=== PATIENT | male | born 1930 | race Caucasian/White ===

== ENCOUNTER 2016-11-29 22:56 | Inpatient (IN) | payer OTHER ==
[2016-11-29] MEDS ORDERED: ACETAMINOPHEN 500 MG TAB PO ONE (23:30)
[2016-11-29] MEDS ORDERED: NS 1,000 ML IV ONE (23:30)
--- NOTE | 2016-11-29 23:39 | EDPHY ---
H & P Smoking Status: Former smoker Time Seen by Provider: 11/29/16 23:37 HPI/ROS: Chief complaint. Fever HPI. 86-year-old male here by EMS with generalized weakness and fever. This began about 24 hours ago. He was unaware however that he had a fever. He only knows generalized weakness and difficulty ambulating around his house. He does have some frequent urination per his . He was seen 3 days ago for an ERCP with biopsy and the indication was choledocholithiasis. He has no abdominal pain however. Denies cough or shortness of breath or chest pain. No abdominal pain vomiting or diarrhea ROS Constitutional. Fever and weakness Eyes. no problems with vision ENT. no sore throat, no nasal drainage Cardiovascular. no chest pain Respiratory. no shortness of breath, no cough Abdominal. no abdominal pain, no nausea/vomiting, no diarrhea . Frequent urination MS. no calf pain/swelling, no neck/back pain, no joint pain Skin. no rash Lymph. no swollen glands Neuro. Difficulty walking secondary to weakness (Pedro Moreland) Past Medical/Surgical History: Past medical history is significant for atrial fibrillation, peripheral neuropathy, pacemaker, hiatal hernia, prostate cancer, cholangitis, cardioversion, cholecystectomy, appendectomy, lumbar surgery (Pedro Moreland) Social History: , nonsmoker, no alcohol (Pedro Moreland) Physical Exam: General Appearance: Alert well-developed male mild distress. Vital signs show temp 38.8degrees with heart rate 101. Blood pressure is stable 142/83. Pulse ox slightly low at 88% Eyes: Pupils equal and round no pallor or injection. ENT, Mouth: Mucous membranes are moist. Respiratory: There are no retractions, lungs are clear to auscultation. Cardiovascular: Regular rate and rhythm. Gastrointestinal: Abdomen is soft and nontender, no masses, bowel sounds normal. Neurological: Awake and alert, sensory and motor exams grossly normal. Skin: Warm and dry, no rashes. Musculoskeletal: Neck is supple nontender. Extremities symmetrical, full range of motion. Psychiatric: Patient is oriented X 3, there is no agitation. (Pedro Moreland) Constitutional: Initial Vital Signs Temperature (C) 38.8 C H 11/29/16 23:27 Heart Rate 101 H 11/29/16 23:27 Respiratory Rate 20 05/07/17 23:27 Blood Pressure 142/83 H 11/29/16 23:27 O2 Sat (%) 88 L 11/29/16 23:27 O2 Delivery Mode Nasal Cannula O2 (L/minute) 2 Allergies/Adverse Reactions: amiodarone Allergy (Verified 11/29/16 23:26) Home Medications: Medication Instructions Recorded Diltiazem [Cardizem] 120 mg PO QID 06/18/14 Dorzolamide 2% [Trusopt 2% (*)] 1 drops LEFTEYE BID 06/18/14 Latanoprost 0.005% [Xalatan 0.005% 1 drops LEFTEYE HS 06/18/14 (*)] Multivitamins [Multivitamin (*)] 1 each PO DAILY 10/03/14 [place]-3 Fatty Acids/Fish Oil [Fish 1 each PO DAILY 10/03/14 Oil 1,000 mg Capsule] Vit C/Dl-E AC/Lut/Copper/Znox 1 each PO BID 10/03/14 [Preservision Softgel] Warfarin Sodium [Coumadin 5MG (*)] 5 mg PO HS 10/03/14 Pantoprazole Sodium [Protonix] 40 mg PO BID #60 tab 10/06/14 levOFLOXACIN [levAQUIN] 750 mg PO DAILY #5 tab 10/06/14 Medical Decision Making Procedures: IV normal saline. The patient received 500 cc per EMS and he is given a L here. Tylenol for fever. Septic workup including lactate and blood cultures (Pedro Moreland) Care assumed by me pending results of blood test. Patient is presenting with fever and generalized weakness. No source of infection. Chest x-ray is negative. Urinalysis is unremarkable. He does have an elevation in his troponin. Of note Dr. Moreland indicated that he had had an ERCP 2 days ago. This is incorrect. The did the ERCP was in 2014. The patient has an otherwise benign workup. No focal source of infection. I discussed with Dr. Abhishek Almendarez , hospitalist. He will admit to his service for further evaluation (Smooth Michaels) Differential Diagnosis: Differential diagnosis of fever includes most likely pneumonia or urinary tract infection. He certainly may have elevated lactate. He is not hypotensive. ( Pedro Moreland) Care Turn Over: Dr. Michaels at midnight (Pedro Moreladn) - Data Points Laboratory Results: Laboratory Results 11/29/16 23:15 11/29/16 23:15 11/30/16 11/29/16 11/29/16 01:34 23:15 23:15 WBC RBC Hgb Hct MCV MCH MCHC RDW Plt Count MPV Neut % (Auto) Lymph % (Auto) [place] % (Auto) Eos % (Auto) Baso % (Auto) Nucleat RBC Rel Count Absolute Neuts (auto) Absolute Lymphs (auto) Absolute Monos (auto) Absolute Eos (auto) Absolute Basos (auto) Absolute Nucleated RBC Immature Gran % Immature Gran # PT 33.8 SEC H SEC (12.0-15.0) INR 3.27 H (0.83-1.16) APTT 40.3 SEC H SEC (23.0-38.0) VBG Lactic Acid Sodium 140 mEq/L mEq/L (134-144) Potassium 4.2 mEq/L mEq/L (3.5-5.2) Chloride 105 mEq/L mEq/L (97-110) Carbon Dioxide 23 mEq/l mEq/l (22-31) Anion Gap 12 mEq/L mEq/L (8-16) BUN 22 mg/dL mg/dL (7-23) Creatinine 0.9 mg/dL mg/dL (0.7-1.3) Estimated GFR > 60 Glucose 159 mg/dL H mg/dL (70-100) Calcium 9.2 mg/dL mg/dL (8.5-10.4) Total Bilirubin 1.9 mg/dL H mg/dL (0.1-1.4) Troponin I 0.042 ng/mL H ng/mL (0-0.034) Lipase 24.0 IU/L IU/L (23-300) Urine Color Urine Appearance Urine pH Ur Specific [place] Urine Protein Urine Ketones Urine Blood Urine Nitrate Urine Bilirubin Urine Urobilinogen Ur Leukocyte Esterase Urine RBC Urine WBC Ur Epithelial Cells Hyaline Casts Urine Mucus Urine Glucose Influenza Typ A,B (DFA) Pending 11/29/16 11/29/16 11/29/16 23:15 00:15 00:05 WBC 17.48 10^3/uL H 10^3/uL (3.80-9.50) RBC 5.26 10^6/uL 10^6/uL (4.40-6.38) Hgb 15.0 g/dL g/dL (13.7-17.5) Hct 44.8 % % (40.0-51.0) MCV 85.2 fL fL (81.5-99.8) MCH 28.5 pg pg (27.9-34.1) MCHC 33.5 g/dL g/dL (32.4-36.7) RDW 13.9 % % (11.5-15.2) Plt Count 207 10^3/uL 10^3/uL (150-400) MPV 11.8 fL H fL (8.7-11.7) Neut % (Auto) 81.3 % H % (39.3-74.2) Lymph % (Auto) 7.7 % L % (15.0-45.0) [place] % (Auto) 10.0 % % (4.5-13.0) Eos % (Auto) 0.1 % L % (0.6-7.6) Baso % (Auto) 0.2 % L % (0.3-1.7) Nucleat RBC Rel Count 0.0 % % (0.0-0.2) Absolute Neuts (auto) 14.23 10^3/uL H 10^3/uL (1.70-6.50) Absolute Lymphs (auto) 1.34 10^3/uL 10^3/uL (1.00-3.00) Absolute Monos (auto) 1.75 10^3/uL H 10^3/uL (0.30-0.80) Absolute Eos (auto) 0.01 10^3/uL L 10^3/uL (0.03-0.40) Absolute Basos (auto) 0.03 10^3/uL 10^3/uL (0.02-0.10) Absolute Nucleated RBC 0.00 10^3/uL 10^3/uL (0-0.01) Immature Gran % 0.7 % % (0.0-1.1) Immature Gran # 0.12 10^3/uL H 10^3/uL (0.00-0.10) PT INR APTT VBG Lactic Acid 1.3 mmol/L mmol/L (0.7-2.1) Sodium Potassium Chloride Carbon Dioxide Anion Gap BUN Creatinine Estimated GFR Glucose Calcium Total Bilirubin Troponin I Lipase Urine Color GUI Urine Appearance HAZY Urine pH 5.0 (5.0-7.5) Ur Specific [place] 1.029 (1.002-1.030) Urine Protein 2+ H (NEGATIVE) Urine Ketones TRACE H (NEGATIVE) Urine Blood NEGATIVE (NEGATIVE) Urine Nitrate NEGATIVE (NEGATIVE) Urine Bilirubin NEGATIVE (NEGATIVE) Urine Urobilinogen NEGATIVE EU EU (0.2-1.0) Ur Leukocyte Esterase NEGATIVE (NEGATIVE) Urine RBC 10-15 /hpf H /hpf (0-3) Urine WBC 1-3 /hpf /hpf (0-3) Ur Epithelial Cells TRACE /lpf /lpf (NONE-1+) Hyaline Casts 1-5 /lpf /lpf (0-1) Urine Mucus 2+ /lpf H /lpf (NONE-1+) Urine Glucose 1+ H (NEGATIVE) Influenza Typ A,B (DFA) Medications Given: Discontinued Medications Acetaminophen (Tylenol) 1,000 mg PO EDNOW ONE Stop: 11/29/16 23:31 Last Admin: 11/29/16 23:49 Dose: 1,000 mg Sodium Chloride (Ns) 1,000 mls @ 0 mls/hr IV ONCE ONE PRN Reason: Wide Open Stop: 11/29/16 23:31 Last Admin: 11/29/16 23:30 Dose: 1,000 mls Departure - Departure Disposition: [facility] Inpatient Acute Clinical Impression: Fever, Elevated troponin Condition: Fair Referrals: Patient,NotPresent [Unknown] - As per Instructions
[2016-11-29 23:57] LABS: % IMMATURE GRANULYOCYTES 0.7 % (0.0-1.1); ABSOLUTE IMMATURE GRANULOCYTES 0.12 10^3/uL (0.00-0.10); ADD DIFF? NO; ADD MORPH? NO; ADD SCAN? NO; ATYPICAL LYMPHOCYTE FLAG 0 (0-99); FRAGMENT RBC FLAG 0 (0-99); HEMATOCRIT 44.8 % (40.0-51.0); LEFT SHIFT FLG 20 (0-99); LIPEMIA HEMOLYSIS FLAG 80 (0-99); MEAN CELL HEMOGLOBIN 28.5 pg (27.9-34.1); MEAN CELL HEMOGLOBIN CONCENTR. 33.5 g/dL (32.4-36.7); MEAN CELL VOLUME 85.2 fL (81.5-99.8); MEAN PLATELET VOLUME 11.8 fL (8.7-11.7); PLATELET CLUMPS FLAG 30 (0-99); PLATELET COUNT 207 10^3/uL (150-400); RED BLOOD CELL COUNT 5.26 10^6/uL (4.40-6.38); RED CELL DISTRIBUTION WIDTH 13.9 % (11.5-15.2)
[2016-11-30 00:07] LABS: ANION GAP 12 mEq/L (8-16); BILIRUBIN,TOTAL 1.9 mg/dL (0.1-1.4); CALCIUM 9.2 mg/dL (8.5-10.4); CARBON DIOXIDE 23 mEq/l (22-31); CHLORIDE 105 mEq/L (97-110); CREATININE 0.9 mg/dL (0.7-1.3); GLOMERULAR FILTRATION RATE > 60; GLUCOSE 159 mg/dL (70-100); INR 3.27 (0.83-1.16); POTASSIUM 4.2 mEq/L (3.5-5.2); PROTIME(PATIENT) 33.8 SEC (12.0-15.0); SODIUM 140 mEq/L (134-144)
[2016-11-30 00:08] LABS: APTT 40.3 SEC (23.0-38.0)
[2016-11-30 00:18] LABS: TROPONIN I 0.042 ng/mL (0-0.034)
[2016-11-30 00:31] LABS: COLOR AMBER; LEUKOCYTE ESTERASE,URINE NEGATIVE (NEGATIVE); NITRITE,URINE NEGATIVE (NEGATIVE)
[2016-11-30 00:40] LABS: MUCUS 2+ /lpf (NONE-1+)
--- NOTE | 2016-11-30 01:02 | CPEKG ---
Heart Rate: 84 RR Interval: 714 QRSD Interval: 102 QT Interval: 332 QTC Interval: 393 QRS [place]: -63 EKG Severity - ABNORMAL ECG - EKG Impression: ATRIAL FIBRILLATION, V-RATE 60-104 EKG Impression: INFERIOR INFARCT, AGE INDETERMINATE EKG Impression: PROBABLE ANTEROSEPTAL INFARCT, AGE INDETERM Electronically Signed By: Smooth Michaels 30-Nov-2016 07:14:39
[2016-11-30] MEDS ORDERED: ONDANSETRON 4 MG/2 ML VIAL IVP PRN (04:27)
[2016-11-30] MEDS ORDERED: ONDANSETRON DISINTEGRATING 4 MG TAB PO PRN (04:27)
--- NOTE | 2016-11-30 04:36 | PDGENHP ---
History and Physical - Chief Complaint acute weakness - History of Present Illness PCP: Dr. Winchester Primary wire welder: Dr. Benavides Primary belt polisher: Dr. Rosado HPI: 86-year-old male presenting with acute weakness characterized as generalized with associated fatigue, urinary frequency, anorexia, onset of symptoms 3 days ago and duration persistently worsening thereafter. Patient reports that he had previously been feeling well, albeit with a chronic slowly progressive weakness and neuropathy, when he experienced acutely worsening weakness 3 days prior to arrival. His symptoms are exacerbated with ambulation and consequently he has been dragging himself physically around most of his house. Does report some associated "Rug burn" on his face as well as his knees. He denies overt diarrhea but does report that he has been having hard stool followed by loose stool followed by only intermittent bowel movements every 48 hours. He denies overt right upper quadrant pain but does report that the last time he experienced biliary stones he did not experience right upper quadrant pain either. History Information - Allergies/Home Medication List Allergies/Adverse Reactions: amiodarone Allergy (Verified 11/29/16 23:26) Home Medications: Diltiazem [Cardizem] 120 mg PO QID 06/18/14 [Last Taken 09/27/14] Dorzolamide 2% [Trusopt 2% (*)] 1 drops LEFTEYE BID 06/18/14 [Last Taken ] Latanoprost 0.005% [Xalatan 0.005% (*)] 1 drops LEFTEYE HS 06/18/14 [Last Taken 10/02/14] Multivitamins [Multivitamin (*)] 1 each PO DAILY 10/03/14 [Last Taken Unknown] [place]-3 Fatty Acids/Fish Oil [Fish Oil 1,000 mg Capsule] 1 each PO DAILY [Last Taken Unknown] Vit C/Dl-E AC/Lut/Copper/Znox [Preservision Softgel] 1 each PO BID 10/03/14 [ Last Taken Unknown] Warfarin Sodium [Coumadin 5MG (*)] 5 mg PO HS 10/03/14 [Last Taken 10/02/14] I have personally reviewed and updated: family history, medical history, social history, surgical history - Past Medical History atrial fibrillation ( Permanent, on systemic anticoagulation with sick sinus syndrome) Additional medical history: Ascending cholangitis with choledocholithiasis, requiring ERCP. Peptic ulcer disease. Macular degeneration. Peripheral neuropathy with chronic weakness - Surgical History Additional surgical history: November [address] Rosado demonstrating large hiatal hernia without ulcers on follow-up scoping, removed biliary stents at that time. Back surgery. Prostate surgery. Appendectomy. Cholecystectomy. Permanent pacemaker - Family History Additional family history: no recent sick family contacts - Social History Smoking Status: Former smoker Alcohol Use: None Drug Use: None Additional social history: lives with , independent, has a son who lives locally Review of Systems ROS: 10pt was reviewed & negative except for what was stated in HPI & below Constitutional: Reports: weakness Gastrointestinal: Reports: other ( anorexia) Physical Exam Temp Pulse Resp BP Pulse Ox 37.2 C 74 18 107/63 96 11/30/16 03:14 11/30/16 03:14 11/30/16 03:14 11/30/16 03:14 11/30/16 03:14 O2 (L/minute) 2 Constitutional: no apparent distress, appears nourished, not in pain Eyes: PERRL, anicteric sclera, EOMI Ears, Nose, Mouth, Throat: moist mucous membranes, hearing normal, ears appear normal, no oral mucosal ulcers Cardiovascular: irregularly irregular, tachycardia, No systolic murmur, No edema Respiratory: no respiratory distress, no rales or rhonchi, clear to auscultation Gastrointestinal: normoactive bowel sounds, soft, non-tender abdomen, no palpable masses, No guarding, No distension Skin: other ( less than 5 cm erythematous skin tear medial aspect right knee, abrasion on bridge of nose and forehead) Neurologic: AAOx3, CN II-XII Intact, No sensation intact bilaterally ( paresthesias bilateral lower extremities, worse distally), No weakness ( motor strength 5/5 bilateral upper and lower extremities) Psychiatric: interacting appropriately, not anxious, not encephalopathic, thought process linear Lymph, Heme, Immunologic: no cervical LAD, other ( palpable, nontender, 1 cm lymph nodes bilateral submandibular) Lab Data & Imaging Review 11/29/16 23:15 11/29/16 23:15 WBC 17.48 10^3/uL (3.80-9.50) H 11/29/16 23:15 RBC 5.26 10^6/uL (4.40-6.38) 11/29/16 23:15 Hgb 15.0 g/dL (13.7-17.5) 11/29/16 23:15 Hct 44.8 % (40.0-51.0) 11/29/16 23:15 MCV 85.2 fL (81.5-99.8) 11/29/16 23:15 MCH 28.5 pg (27.9-34.1) 11/29/16 23:15 MCHC 33.5 g/dL (32.4-36.7) 11/29/16 23:15 RDW 13.9 % (11.5-15.2) 11/29/16 23:15 Plt Count 207 10^3/uL (150-400) 11/29/16 23:15 MPV 11.8 fL (8.7-11.7) H 11/29/16 23:15 Neut % (Auto) 81.3 % (39.3-74.2) H 11/29/16 23:15 Lymph % (Auto) 7.7 % (15.0-45.0) L 11/29/16 23:15 [place] % (Auto) 10.0 % (4.5-13.0) 11/29/16 23:15 Eos % (Auto) 0.1 % (0.6-7.6) L 11/29/16 23:15 Baso % (Auto) 0.2 % (0.3-1.7) L 11/29/16 23:15 Nucleat RBC Rel Count 0.0 % (0.0-0.2) 11/29/16 23:15 Absolute Neuts (auto) 14.23 10^3/uL (1.70-6.50) H 11/29/16 23:15 Absolute Lymphs (auto) 1.34 10^3/uL (1.00-3.00) 11/29/16 23:15 Absolute Monos (auto) 1.75 10^3/uL (0.30-0.80) H 11/29/16 23:15 Absolute Eos (auto) 0.01 10^3/uL (0.03-0.40) L 11/29/16 23:15 Absolute Basos (auto) 0.03 10^3/uL (0.02-0.10) 11/29/16 23:15 Absolute Nucleated RBC 0.00 10^3/uL (0-0.01) 11/29/16 23:15 Immature Gran % 0.7 % (0.0-1.1) 11/29/16 23:15 Immature Gran # 0.12 10^3/uL (0.00-0.10) H 11/29/16 23:15 PT 33.8 SEC (12.0-15.0) H 11/29/16 23:15 INR 3.27 (0.83-1.16) H 11/29/16 23:15 APTT 40.3 SEC (23.0-38.0) H 11/29/16 23:15 VBG Lactic Acid 1.3 mmol/L (0.7-2.1) 11/29/16 00:15 Sodium 140 mEq/L (134-144) 11/29/16 23:15 Potassium 4.2 mEq/L (3.5-5.2) 11/29/16 23:15 Chloride 105 mEq/L (97-110) 11/29/16 23:15 Carbon Dioxide 23 mEq/l (22-31) 11/29/16 23:15 Anion Gap 12 mEq/L (8-16) 11/29/16 23:15 BUN 22 mg/dL (7-23) 11/29/16 23:15 Creatinine 0.9 mg/dL (0.7-1.3) 11/29/16 23:15 Estimated GFR > 60 11/29/16 23:15 Glucose 159 mg/dL (70-100) H 11/29/16 23:15 Calcium 9.2 mg/dL (8.5-10.4) 11/29/16 23:15 Total Bilirubin 1.9 mg/dL (0.1-1.4) H 11/29/16 23:15 Troponin I 0.042 ng/mL (0-0.034) H 11/29/16 23:15 Lipase 24.0 IU/L (23-300) 11/29/16 23:15 Urine Color GUI 11/29/16 00:05 Urine Appearance HAZY 11/29/16 00:05 Urine pH 5.0 (5.0-7.5) 11/29/16 00:05 Ur Specific [place] 1.029 (1.002-1.030) 11/29/16 00:05 Urine Protein 2+ (NEGATIVE) H 11/29/16 00:05 Urine Ketones TRACE (NEGATIVE) H 11/29/16 00:05 Urine Blood NEGATIVE (NEGATIVE) 11/29/16 00:05 Urine Nitrate NEGATIVE (NEGATIVE) 11/29/16 00:05 Urine Bilirubin NEGATIVE (NEGATIVE) 11/29/16 00:05 Urine Urobilinogen NEGATIVE EU (0.2-1.0) 11/29/16 00:05 Ur Leukocyte Esterase NEGATIVE (NEGATIVE) 11/29/16 00:05 Urine RBC 10-15 /hpf (0-3) H 11/29/16 00:05 Urine WBC 1-3 /hpf (0-3) 11/29/16 00:05 Ur Epithelial Cells TRACE /lpf (NONE-1+) 11/29/16 00:05 Hyaline Casts 1-5 /lpf (0-1) 11/29/16 00:05 Urine Mucus 2+ /lpf (NONE-1+) H 11/29/16 00:05 Urine Glucose 1+ (NEGATIVE) H 11/29/16 00:05 Influenza Typ A,B (DFA) NEGATIVE FOR FLU (NEGATIVE) 11/30/16 01:34 Visualized and Interpreted Chest x-ray results: Yes Chest X-Ray results: other ( possible retrocardiac airspace disease) Visualized and Interpreted EKG results: Yes EKG Interpretation: Positive for: other ( atrial fibrillation with Q-waves inferiorly in lead V3, T-wave inversions in lead V3 through V6) Assessment & Plan Assessment: 86-year-old male presenting with acute systemic inflammatory response syndrome and suspected underlying infection resulting in sepsis Plan: 1. Suspected sepsis. Acute, new problem, further w/u. Evidenced by ICDS-2/ sepsis -2 criteria including tachycardia, fever, leukocytosis, suspected source of infection is either pneumonia versus respiratory virus versus ascending cholangitis, resulting in autonomic dysregulation in the setting of suspected infection - continue IV fluids - status post empiric IV levofloxacin for possible retrocardiac infiltrate - blood culture sent, send respiratory viral panel - get right upper quadrant ultrasound to evaluate for choledocholithiasis given his history of ascending cholangitis - get full liver panel given hyperbilirubinemia , outside records reviewed including 11/26/[address] Rosado demonstrating no active ulcers, large hiatal hernia, removal biliary stents at that time - if above unrevealing, consider more advanced chest imaging to determine whether he has an overt pneumonia - follow CBC and fever curve - as needed Tylenol 2. Abnormal troponin. Unclear whether this is secondary to sepsis induced myocardial ischemia versus rate-related ischemia from AFib RVR - repeat troponin level - continue monitor on telemetry - hold on cardiac risk stratification unless patient has no evidence of infection then pursue nuclear medicine adenosine stress test 3. Permanent atrial fibrillation. With sick sinus syndrome, continue systemic anticoagulation and daily INR check 4. Peripheral neuropathy. Has an element of chronic underlying weakness, engage with PT OT and case management to determine safest level of care following resolution of his acute episode Diet. Regular Prophylaxis. High risk patient, on systemic anticoagulation Code. Do not resuscitate Disposition. Anticipated discharge is uncertain this time, anticipated length stay is greater than 48 hours warranting inpatient admission status for acute suspected sepsis in the setting of high risk comorbid abnormal troponin, permanent atrial fibrillation, chronic peripheral neuropathy. I have discussed patient's presentation with Dr. Sammy Michaels, we agreed the patient is appropriate for the PCU at this time.
[2016-11-30] MEDS: NS 1,000 ML IV SCH ×2 (06:14→11:48)
[2016-11-30 07:31] LABS: % IMMATURE GRANULYOCYTES 0.8 % (0.0-1.1); ABSOLUTE IMMATURE GRANULOCYTES 0.11 10^3/uL (0.00-0.10); ADD DIFF? NO; ADD MORPH? NO; ADD SCAN? NO; ATYPICAL LYMPHOCYTE FLAG 0 (0-99); FRAGMENT RBC FLAG 0 (0-99); HEMATOCRIT 40.1 % (40.0-51.0); HEMOGLOBIN 13.4 g/dL (13.7-17.5); LEFT SHIFT FLG 20 (0-99); LIPEMIA HEMOLYSIS FLAG 80 (0-99); MEAN CELL HEMOGLOBIN CONCENTR. 33.4 g/dL (32.4-36.7); MEAN CELL VOLUME 86.8 fL (81.5-99.8); MEAN PLATELET VOLUME 11.3 fL (8.7-11.7); PLATELET CLUMPS FLAG 10 (0-99); PLATELET COUNT 173 10^3/uL (150-400); RED BLOOD CELL COUNT 4.62 10^6/uL (4.40-6.38)
[2016-11-30 07:40] LABS: ALANINE AMINOTRANSFERASE 29 IU/L (21-72); ALBUMIN 3.1 g/dL (3.5-5.0); ALKALINE PHOSPHATASE 53 IU/L (38-126); ANION GAP 5 mEq/L (8-16); ASPARTATE AMINOTRANSFERASE 18 IU/L (17-59); BILIRUBIN,TOTAL 1.8 mg/dL (0.1-1.4); CALCIUM 8.6 mg/dL (8.5-10.4); CARBON DIOXIDE 26 mEq/l (22-31); CHLORIDE 107 mEq/L (97-110); GLOMERULAR FILTRATION RATE > 60; GLUCOSE 128 mg/dL (70-100); MAGNESIUM 1.7 mg/dL (1.6-2.3); POTASSIUM 4.2 mEq/L (3.5-5.2); SODIUM 138 mEq/L (134-144); TOTAL PROTEIN 6.4 g/dL (6.3-8.2)
[2016-11-30 07:41] LABS: INR 3.46 (0.83-1.16); PROTIME(PATIENT) 35.4 SEC (12.0-15.0)
[2016-11-30 08:40] LABS: TROPONIN I 0.058 ng/mL (0-0.034)
[2016-11-30] MEDS: PANTOPRAZOLE SODIUM 40 MG TAB PO SCH ×2 (09:47→20:41)
[2016-11-30] MEDS: DORZOLAMIDE 2% OPTH DROPS LEFTEYE SCH ×2 (09:50→19:51)
--- NOTE | 2016-11-30 11:07 | HOSPPROG ---
Hospitalist Progress Note Assessment/Plan: Pt admitted this am. Chart reviewed, pt seen and examined. Sepsis secondary to PNA - LLL / retrocardiac infiltrate in setting of left chest pain and productive cough with fever and hypoxia. Flu neg. Nl lactate and no hypotension. -Levaquin -send sputum cx -BCx's pending -send pneumococcal / legionella urinary Ag A fib - rate controlled on Dilt, INR supratherapeutic -cont dilt at low dose for rate control as BP tolerates, up-titrate as sepsis resolves -hold coumadin today, pharmacy to dose going forward Elevated trop - suspect demand ischemia in setting of sepsis. No CP or signs of ACS. -trend to peak Peripheral neuropathy - severe. His ambulation is very unstable. -PT/OT -he may require SNF but not sure he'll agree to this Full code Dispo - cont inpt Subjective: Pt feels a little better. No more fevers. He is up with PT, very unsteady on his feet. Objective: Vital Signs Temp Pulse Resp BP Pulse Ox 36.9 C 75 21 H 113/65 96 11/30/16 08:15 11/30/16 08:15 11/30/16 08:15 11/30/16 08:15 11/30/16 08:15 Microbiology 11/30/16 08:36 Respiratory Panel (PCR) - Final Nasal, Sinus - [place] Viral Transport No Organism Detected Laboratory Results 11/30/16 07:20 11/30/16 07:20 11/29/16 11/30/16 12/01/16 05:59 05:59 05:59 Intake Total 1600 Output Total 0 Balance 1600 PT 35.4 SEC (12.0-15.0) H 11/30/16 07:20 INR 3.46 (0.83-1.16) H 11/30/16 07:20 - Physical Exam Constitutional: no apparent distress Eyes: PERRL Ears, Nose, Mouth, Throat: moist mucous membranes Cardiovascular: irregularly irregular Respiratory: no respiratory distress, clear to auscultation Gastrointestinal: normoactive bowel sounds, soft, non-tender abdomen Skin: warm Neurologic: AAOx3 Psychiatric: interacting appropriately ICD10 Worksheet Patient Problems: Problems Problem Status Onset Atrial fibrillation Acute Pacemaker 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
[2016-11-30] MEDS ORDERED: DILTIAZEM 30 MG TAB PO SCH (12:00)
[2016-11-30] MEDS: DILTIAZEM 60 MG TAB PO SCH ×2 (18:58→23:14)
[2016-11-30] MEDS: ACETAMINOPHEN 325 MG TAB PO PRN (19:11)
--- NOTE | 2016-11-30 19:32 | CPEKG ---
Heart Rate: 90 RR Interval: 667 QRSD Interval: 112 QT Interval: 352 QTC Interval: 431 QRS [place]: -39 T Wave [place]: -17 EKG Severity - ABNORMAL ECG - EKG Impression: ATRIAL FIBRILLATION, V-RATE 83-105 EKG Impression: INCOMPLETE RIGHT BUNDLE BRANCH BLOCK EKG Impression: ANTERIOR INFARCT, AGE INDETERMINATE Electronically Signed By: Villa Garrison 01-Dec-2016 14:49:53
[2016-11-30] MEDS: LATANOPROST 0.005% 2.5 ML OPHT DROPS LEFTEYE SCH (20:41)
[2016-12-01 04:39] LABS: % IMMATURE GRANULYOCYTES 0.8 % (0.0-1.1); ABSOLUTE IMMATURE GRANULOCYTES 0.11 10^3/uL (0.00-0.10); ADD DIFF? NO; ADD MORPH? NO; ADD SCAN? NO; ATYPICAL LYMPHOCYTE FLAG 0 (0-99); FRAGMENT RBC FLAG 0 (0-99); HEMATOCRIT 38.6 % (40.0-51.0); LEFT SHIFT FLG 20 (0-99); LIPEMIA HEMOLYSIS FLAG 80 (0-99); MEAN CELL HEMOGLOBIN 28.9 pg (27.9-34.1); MEAN CELL HEMOGLOBIN CONCENTR. 33.7 g/dL (32.4-36.7); MEAN CELL VOLUME 85.8 fL (81.5-99.8); MEAN PLATELET VOLUME 12.1 fL (8.7-11.7); PLATELET CLUMPS FLAG 0 (0-99); PLATELET COUNT 171 10^3/uL (150-400)
[2016-12-01 04:46] LABS: INR 2.98 (0.83-1.16); PROTIME(PATIENT) 31.4 SEC (12.0-15.0)
[2016-12-01 05:15] LABS: ALANINE AMINOTRANSFERASE 27 IU/L (21-72); ALBUMIN 2.6 g/dL (3.5-5.0); ALKALINE PHOSPHATASE 57 IU/L (38-126); ANION GAP 7 mEq/L (8-16); ASPARTATE AMINOTRANSFERASE 19 IU/L (17-59); BILIRUBIN,TOTAL 1.8 mg/dL (0.1-1.4); CALCIUM 8.1 mg/dL (8.5-10.4); CARBON DIOXIDE 22 mEq/l (22-31); CHLORIDE 106 mEq/L (97-110); CREATININE 0.9 mg/dL (0.7-1.3); GLOMERULAR FILTRATION RATE > 60; GLUCOSE 94 mg/dL (70-100); SODIUM 135 mEq/L (134-144); TOTAL PROTEIN 5.4 g/dL (6.3-8.2)
[2016-12-01] MEDS: DILTIAZEM 60 MG TAB PO SCH ×3 (06:25→18:25)
[2016-12-01] MEDS: PANTOPRAZOLE SODIUM 40 MG TAB PO SCH ×2 (09:20→21:16)
[2016-12-01] MEDS: DORZOLAMIDE 2% OPTH DROPS LEFTEYE SCH ×2 (09:21→21:19)
[2016-12-01] MEDS ORDERED: DILTIAZEM 60 MG TAB PO SCH (10:05)
--- NOTE | 2016-12-01 10:08 | HOSPPROG ---
Hospitalist Progress Note Assessment/Plan: Sepsis secondary to PNA - LLL / retrocardiac infiltrate in setting of left chest pain and productive cough with fever and hypoxia. Flu neg. Nl lactate and no hypotension. Afebrile x24 hrs on atbx. -Change to oral Levaquin -BCx's ngtd, sputum Cx pending -pneumococcal / legionella urinary Ag pending A fib - rate controlled on Dilt, INR supratherapeutic -up-titrating diltiazem towards home dose of 120 QID as sepsis is resolving, BP's stable -pharmacy dosing coumain Elevated trop - suspect demand ischemia in setting of sepsis, peaked at 0.058, trending down. No CP or signs of ACS. Peripheral neuropathy - severe. His ambulation is very unstable. -PT/OT -he may require SNF but not sure he'll agree to this Full code Dispo - cont inpt, PT/OT, dispo planning Subjective: Pt feels a bit better. Still quite unsteady on his feet. Having some pleurisy pain. No fevers overnight. Objective: Vital Signs Temp Pulse Resp BP Pulse Ox 36.9 C 95 20 134/81 H 93 12/01/16 07:08 12/01/16 07:08 12/01/16 07:08 12/01/16 07:08 12/01/16 07:08 Microbiology 11/30/16 08:36 Respiratory Panel (PCR) - Final Nasal, Sinus - [place] Viral Transport No Organism Detected Laboratory Results 12/01/16 03:21 12/01/16 03:21 11/30/16 12/01/16 12/02/16 05:59 05:59 05:59 Intake Total 100 2770 Output Total 0 200 Balance 100 2570 PT 31.4 SEC (12.0-15.0) H 12/01/16 03:21 INR 2.98 (0.83-1.16) H 12/01/16 03:21 - Physical Exam Constitutional: no apparent distress Eyes: PERRL Ears, Nose, Mouth, Throat: moist mucous membranes Cardiovascular: regular rate and rhythym Respiratory: no respiratory distress, clear to auscultation Gastrointestinal: normoactive bowel sounds, soft, non-tender abdomen Skin: warm Neurologic: AAOx3 Psychiatric: interacting appropriately ICD10 Worksheet Patient Problems: Problems Problem Status Onset Elevated troponin Acute Fever Acute Atrial fibrillation Acute Fever Acute 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
[2016-12-01] MEDS: traMADol 50 MG TAB PO PRN ×2 (14:30→21:16)
[2016-12-01] MEDS: LIDOCAINE 5% 1 EA PATCH TD SCH (14:31)
[2016-12-01] MEDS ORDERED: WARFARIN SODIUM 1 MG TAB PO ONE (16:00)
[2016-12-01] MEDS: ACETAMINOPHEN 325 MG TAB PO PRN (16:38)
[2016-12-01] MEDS: PATCH REMOVAL 1 EA PATCH TD SCH (21:18)
[2016-12-01] MEDS: LATANOPROST 0.005% 2.5 ML OPHT DROPS LEFTEYE SCH (21:19)
[2016-12-02] MEDS: DILTIAZEM 60 MG TAB PO SCH ×5 (00:19→23:46)
[2016-12-02 04:44] LABS: ABSOLUTE IMMATURE GRANULOCYTES 0.12 10^3/uL (0.00-0.10); ADD DIFF? NO; ADD MORPH? NO; ADD SCAN? NO; ATYPICAL LYMPHOCYTE FLAG 0 (0-99); FRAGMENT RBC FLAG 0 (0-99); HEMATOCRIT 38.2 % (40.0-51.0); HEMOGLOBIN 12.8 g/dL (13.7-17.5); LEFT SHIFT FLG 40 (0-99); LIPEMIA HEMOLYSIS FLAG 80 (0-99); MEAN CELL HEMOGLOBIN 28.6 pg (27.9-34.1); MEAN CELL HEMOGLOBIN CONCENTR. 33.5 g/dL (32.4-36.7); MEAN CELL VOLUME 85.3 fL (81.5-99.8); MEAN PLATELET VOLUME 11.6 fL (8.7-11.7); PLATELET CLUMPS FLAG 0 (0-99); PLATELET COUNT 184 10^3/uL (150-400); RED BLOOD CELL COUNT 4.48 10^6/uL (4.40-6.38); RED CELL DISTRIBUTION WIDTH 13.7 % (11.5-15.2)
[2016-12-02 04:56] LABS: INR 2.49 (0.83-1.16); PROTIME(PATIENT) 27.2 SEC (12.0-15.0)
[2016-12-02 05:04] LABS: ALANINE AMINOTRANSFERASE 27 IU/L (21-72); ALBUMIN 2.6 g/dL (3.5-5.0); ALKALINE PHOSPHATASE 55 IU/L (38-126); ANION GAP 10 mEq/L (8-16); ASPARTATE AMINOTRANSFERASE 21 IU/L (17-59); BILIRUBIN,TOTAL 1.4 mg/dL (0.1-1.4); CARBON DIOXIDE 19 mEq/l (22-31); CHLORIDE 106 mEq/L (97-110); CREATININE 0.9 mg/dL (0.7-1.3); GLOMERULAR FILTRATION RATE > 60; GLUCOSE 104 mg/dL (70-100); POTASSIUM 3.9 mEq/L (3.5-5.2); SODIUM 135 mEq/L (134-144); TOTAL PROTEIN 5.2 g/dL (6.3-8.2)
[2016-12-02] MEDS: DORZOLAMIDE 2% OPTH DROPS LEFTEYE SCH ×2 (09:11→21:04)
[2016-12-02] MEDS: PANTOPRAZOLE SODIUM 40 MG TAB PO SCH ×2 (09:11→21:04)
[2016-12-02] MEDS: LIDOCAINE 5% 1 EA PATCH TD SCH (09:37)
[2016-12-02] MEDS ORDERED: BACITRACIN OINTMENT 1 PACKET TP ONE (12:15)
--- NOTE | 2016-12-02 14:52 | HOSPPROG ---
Hospitalist Progress Note Assessment/Plan: Sepsis secondary to PNA - LLL / retrocardiac infiltrate in setting of left chest pain and productive cough with fever and hypoxia. Flu neg. Legionella, strep Ag's neg. Nl lactate and no hypotension. Afebrile x48 hrs on atbx. -Cont Levaquin, day 3/, change to po -BCx's ngtd, sputum Cx pending Acute hypoxemic respiratory failure secondary to above - 2 LPM, may require home o2 A fib - rate controlled on Dilt, INR supratherapeutic on arrival, now therapeutic. -up-titrating diltiazem towards home dose of 120 QID as sepsis resolves, BP' s stable -pharmacy dosing coumain Elevated trop - suspect demand ischemia in setting of sepsis, peaked at 0.058, trending down. No CP or signs of ACS. Peripheral neuropathy - severe. His ambulation is very unstable and he remains very weak. -cont PT/OT -SNF is recommended, but pt refusing both SNF and home care services Full code Dispo - cont inpt, PT/OT, poss d/c 12/03 Subjective: Pt feels better. Chest discomfort and cough improved. No fevers. He is still very weak. Objective: Vital Signs Temp Pulse Resp BP Pulse Ox 36.8 C 83 23 H 127/68 H 97 12/02/16 11:40 12/02/16 11:40 12/02/16 11:40 12/02/16 11:40 12/02/16 11:40 Microbiology 11/30/16 09:10 - Final Sputum, Expectorated Laboratory Results 12/02/16 03:47 12/02/16 03:47 12/01/16 12/02/16 12/03/16 05:59 05:59 05:59 Intake Total 2770 830 Output Total 200 1250 Balance 2570 -420 PT 27.2 SEC (12.0-15.0) H 12/02/16 03:47 INR 2.49 (0.83-1.16) H 12/02/16 03:47 - Physical Exam Constitutional: no apparent distress Eyes: PERRL Ears, Nose, Mouth, Throat: moist mucous membranes Cardiovascular: regular rate and rhythym Respiratory: no respiratory distress, inspiratory crackles Gastrointestinal: normoactive bowel sounds, soft, non-tender abdomen Skin: warm Musculoskeletal: abnormal gait, generalized weakness Neurologic: AAOx3 Psychiatric: interacting appropriately ICD10 Worksheet Patient Problems: Problems Problem Status Onset Elevated troponin Acute Fever Acute Atrial fibrillation Acute Fever Acute 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
[2016-12-02] MEDS ORDERED: WARFARIN SODIUM 5 MG TAB PO ONE (16:00)
[2016-12-02] MEDS ORDERED: WARFARIN SODIUM 3 MG TAB PO ONE (16:00)
[2016-12-02] MEDS: LATANOPROST 0.005% 2.5 ML OPHT DROPS LEFTEYE SCH (21:04)
[2016-12-02] MEDS: PATCH REMOVAL 1 EA PATCH TD SCH (21:14)
[2016-12-03 05:15] LABS: % IMMATURE GRANULYOCYTES 1.3 % (0.0-1.1); ABSOLUTE IMMATURE GRANULOCYTES 0.16 10^3/uL (0.00-0.10); ADD DIFF? NO; ADD MORPH? NO; ADD SCAN? NO; ATYPICAL LYMPHOCYTE FLAG 0 (0-99); FRAGMENT RBC FLAG 0 (0-99); HEMATOCRIT 38.5 % (40.0-51.0); HEMOGLOBIN 13.1 g/dL (13.7-17.5); LEFT SHIFT FLG 30 (0-99); LIPEMIA HEMOLYSIS FLAG 90 (0-99); MEAN CELL HEMOGLOBIN 28.7 pg (27.9-34.1); MEAN CELL VOLUME 84.2 fL (81.5-99.8); MEAN PLATELET VOLUME 11.5 fL (8.7-11.7); PLATELET CLUMPS FLAG 20 (0-99); PLATELET COUNT 225 10^3/uL (150-400); RED BLOOD CELL COUNT 4.57 10^6/uL (4.40-6.38); RED CELL DISTRIBUTION WIDTH 13.9 % (11.5-15.2)
[2016-12-03 05:30] LABS: ANION GAP 10 mEq/L (8-16); CALCIUM 8.1 mg/dL (8.5-10.4); CARBON DIOXIDE 20 mEq/l (22-31); CHLORIDE 105 mEq/L (97-110); CREATININE 0.9 mg/dL (0.7-1.3); GLOMERULAR FILTRATION RATE > 60; GLUCOSE 104 mg/dL (70-100); POTASSIUM 3.9 mEq/L (3.5-5.2); SODIUM 135 mEq/L (134-144)
[2016-12-03] MEDS: DILTIAZEM 60 MG TAB PO SCH ×3 (06:04→17:45)
[2016-12-03 09:30] LABS: INR 2.56 (0.83-1.16); PROTIME(PATIENT) 27.8 SEC (12.0-15.0)
[2016-12-03] MEDS: DORZOLAMIDE 2% OPTH DROPS LEFTEYE SCH ×2 (09:48→17:47)
[2016-12-03] MEDS: PANTOPRAZOLE SODIUM 40 MG TAB PO SCH ×2 (09:48→20:54)
[2016-12-03] MEDS: LIDOCAINE 5% 1 EA PATCH TD SCH (09:49)
--- NOTE | 2016-12-03 14:38 | HOSPPROG ---
Hospitalist Progress Note Assessment/Plan: Sepsis secondary to PNA - LLL / retrocardiac infiltrate in setting of left chest pain and productive cough with fever and hypoxia. Flu neg. Legionella, strep Ag's neg. Nl lactate and no hypotension. Afebrile x48 hrs on atbx. -Cont Levaquin, day 4/, change to po -BCx's ngtd, sputum Cx pending Acute hypoxemic respiratory failure secondary to above - 2 LPM, may require home o2 A fib - rate controlled on Dilt, INR supratherapeutic on arrival, now therapeutic. -up-titrating diltiazem towards home dose of 120 QID as sepsis resolves, BP' s stable -pharmacy dosing coumadin Elevated trop - suspect demand ischemia in setting of sepsis, peaked at 0.058, trending down. No CP or signs of ACS. Peripheral neuropathy - severe. His ambulation is very unstable and he remains very weak. -cont PT/OT -SNF is recommended, but pt refusing both SNF and home care services Full code Dispo - cont inpt, PT/OT, patient is still not strong enough to return home Subjective: not able to get out of bed due to generalized weakness. no fever or chills. no shortness of breath Objective: Vital Signs Temp Pulse Resp BP Pulse Ox 37.1 C 89 20 118/72 99 12/03/16 11:21 12/03/16 11:21 12/03/16 11:21 12/03/16 11:21 12/03/16 11:21 Microbiology 11/30/16 09:10 - Final Sputum, Expectorated Sputum Culture - Final Laboratory Results 12/03/16 04:02 12/03/16 04:02 12/02/16 12/03/16 12/04/16 05:59 05:59 05:59 Intake Total 830 3170 Output Total 1250 800 Balance -420 2370 PT 27.8 SEC (12.0-15.0) H 12/03/16 08:56 INR 2.56 (0.83-1.16) H 12/03/16 08:56 - Physical Exam Constitutional: no apparent distress, appears nourished, not in pain Ears, Nose, Mouth, Throat: moist mucous membranes, hearing normal, ears appear normal, no oral mucosal ulcers Cardiovascular: regular rate and rhythym, no murmur, rub, or gallop Respiratory: no respiratory distress, no rales or rhonchi, clear to auscultation ICD10 Worksheet Patient Problems: Problems Problem Status Onset Atrial fibrillation Acute Pacemaker 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
[2016-12-03] MEDS ORDERED: WARFARIN SODIUM 3 MG TAB PO ONE (16:00)
[2016-12-03] MEDS: LATANOPROST 0.005% 2.5 ML OPHT DROPS LEFTEYE SCH (17:47)
[2016-12-03] MEDS: PATCH REMOVAL 1 EA PATCH TD SCH (20:55)
[2016-12-04] MEDS: DILTIAZEM 60 MG TAB PO SCH ×3 (00:19→12:31)
[2016-12-04 04:43] LABS: INR 2.74 (0.83-1.16); PROTIME(PATIENT) 29.3 SEC (12.0-15.0)
[2016-12-04 07:33] VITALS: TEMP 99
[2016-12-04] MEDS: DORZOLAMIDE 2% OPTH DROPS LEFTEYE SCH (08:59)
[2016-12-04] MEDS: PANTOPRAZOLE SODIUM 40 MG TAB PO SCH (09:01)
[2016-12-04] MEDS: LIDOCAINE 5% 1 EA PATCH TD SCH (09:01)
[2016-12-04] MEDS: traMADol 50 MG TAB PO PRN (09:02)
[2016-12-04 12:26] VITALS: BP 127/74; PULSE 85; RESP 15; O2SAT 96
--- NOTE | 2016-12-04 14:09 | GDS ---
[f rep st] DISCHARGE SUMMARY DISCHARGE DIAGNOSES: 1. Resolved sepsis. 2. Community-acquired pneumonia. 3. Acute hypoxemic respiratory failure. 4. Rate controlled atrial fibrillation. 5. Elevated troponin most likely due to demand ischemia in the setting of sepsis. 6. Idiopathic peripheral neuropathy. CONSULTANTS: None. HOSPITAL COURSE AND STAY BY PROBLEM: 1. Sepsis due to pneumonia: The patient was admitted to the hospital where he has been treated wit h levofloxacin. From a respiratory status, the patient appears to be improving and is saturating 96 % on room air on day of discharge. 2. Idiopathic peripheral neuropathy: The patient's hospital stay has been prolonged due to severe weakness which is likely due to his history of peripheral neuropathy in the setting of pneumonia cau sing further deconditioning. senior care facility placement has been recommended; however, the patient and his have been fairly adamant about returning home. On day of discharge, the patien t seems to be close to his baseline mobility status and tells me he would like to go home. PHYSICAL EXAM: VITAL SIGNS: On day of discharge, blood pressure 127/74, pulse of 85, respiratory r ate 15, O2 saturation 96% on room air, temperature afebrile. GENERAL: No acute distress. HEART: S1, S2. LUNGS: Clear. No wheezes, rales, or rhonchi. Normal respiratory effort. CURRENT LABS AND STUDIES DONE THIS HOSPITAL STAY: Abdominal ultrasound done 11/30/2016, refer to re alexx. DISCHARGE MEDICATIONS: Please refer to discharge medication reconciliation in [facility] for full det ails. Below is a preliminary list. NEW MEDICATIONS ON HOSPITAL DISCHARGE: Levofloxacin 750 mg for 2 more days to complete a 7-day cour se. All other home medications were continued as usual dosages. DISCHARGE INSTRUCTIONS: The patient will be discharged from the hospital with home health. Once ag ain, group home facility placement was recommended and that was refused by the patient. He elvia uld follow up with his primary care provider in the next week or seek medical attention if his condi tion worsens. He will need to continue to have his INR monitored. /[id number]/MODL
[2016-12-04] MEDS ORDERED: WARFARIN SODIUM 3 MG TAB PO SCH (16:00)
== END 2016-12-04 14:11 | disposition home health service (06) | DRG 871 ==
LOC: EDUNIT# → F2W 11-30 02:52 → OBSVTOIN 11-30 04:27
PROVIDERS: ADMIT Internal Medicine; ATTEND Family Medicine
DX: A41.9 Sepsis, unspecified organism (principal); J18.9 Pneumonia, unspecified organism; J96.01 Acute respiratory failure with hypoxia; I50.9 Heart failure, unspecified; I48.91 Unspecified atrial fibrillation; G60.9 Hereditary and idiopathic neuropathy, unspecified
CPT/HCPCS: 87449-90; 97110-GP; 97116-GP; 97162-GP; 97165-GO; 97530-GO; 97530-GP; 97535-GO; G8978-GP-CK; G8979-GP-CI; G8987-GO-CK; G8988-GO-CJ; J1956